=== PATIENT | male | born 1950 | race Caucasian/White ===

== ENCOUNTER 2017-01-18 09:53 | Emergency (ER) | payer MEDICARE, OTHER ==
--- NOTE | 2017-01-18 10:14 | ED Physician Documentation ---
Lower Extremity Injury - HISTORIAN Historian: patient - HPI Chief Complaint: Foot Injury Onset: hours (0815 this AM) Where: home Severity: moderate Context: direct blow Modifying Factors:: pain on movement - ROS CONST: no problems - PAST HX Past History: other (HTN) Allergies/Adverse Reactions: Allergies Allergy/AdvReac Type Severity Reaction Status Date / Time codeine AdvReac Mild Nausea/Vomi Verified 01/18/17 10:51 ting Home Medications: Ambulatory Orders Medication Instructions Recorded Cabergoline [Cabergoline] 0.25 mg PO BID 01/18/17 Losartan Potassium [Cozaar] 100 mg PO 1T 01/18/17 Metoprolol Tartrate [Lopressor] 50 mg PO BID 01/18/17 Pot Chloride/Pot Bicarb/Cit AC 20 meq PO 1T 01/18/17 [Potassium Cl 25 Meq Tab Eff] Prednisone [Prednisone] 20 mg PO BID 01/18/17 Simvastatin [Zocor] 20 mg PO 1T 01/18/17 Tamsulosin HCl [Flomax] 0.4 mg PO 1T 01/18/17 Tramadol HCl [Ultram] 50 mg PO Q4 PRN #20 tablet 01/18/17 - SOCIAL HX Smoking History: non-smoker Alcohol Use: rarely Drug Use: none - FAMILY HX Family History: no significant history - REVIEWED ASSESSMENTS Nursing Assessment Reviewed: Yes Vitals Reviewed: Yes ED Results Lab/Radiology - Orders Orders: ED Orders Category Date Time Status FOOT 3 VIEWS OR MORE [RAD] Stat Exams 01/18/17 Ordered Lower Extremities Injury Phy - Physical Exam General Appearance: alert, moderate distress Hips: bilateral hip: non-tender, normal inspection, normal range of motion, no evidence of injury Legs: bilateral: non-tender, normal inspection, normal range of motion, no evidence of injury Knees: bilateral: non-tender, normal inspection, normal range of motion, no evidence of injury Ankle: bilateral: non-tender, normal inspection, normal range of motion, no evidence of injury Foot: right foot: non-tender, normal inspection, normal range of motion, no evidence of injury, left foot: limited range of motion, pain, swelling (dorsum of foot) Gait: limited by pain Neuro/Vascular/Tendon: no vascular compromise, motor nml, sensation nml Resp/CVS: chest non-tender, breath sounds nml, heart sounds nml, no resp. distress, lungs clear Abdomen: non-tender Discharge Clincal Impression: Metatarsal fracture Qualifiers: Encounter type: initial encounter Metatarsal bone: second Fracture type: closed Fracture alignment: nondisplaced Laterality: left Qualified Code(s): S92.325A - Nondisplaced fracture of second metatarsal bone, left foot, initial encounter for closed fracture Metatarsal fracture Qualifiers: Encounter type: initial encounter Metatarsal bone: second Fracture type: closed Fracture alignment: nondisplaced Laterality: left Qualified Code(s): S92.325A - Nondisplaced fracture of second metatarsal bone, left foot, initial encounter for closed fracture Prescriptions: Tramadol HCl [Ultram] 50 mg PO Q4 PRN #20 tablet PRN Reason: Pain Additional Instructions: Wear walking boot all the time except when sitting around and when you take a shower. Keep foot elevated with ice for the next several days. Take Ibuprofen 200mg tablets as needed for pain, you may take up to 12 tablets a day. Take with food. Take Tramadol with food as needed for pain. Follow-up with me on January 31 and 4PM. Get an x-ray of your foot prior to the appointment. Home Medications: Ambulatory Orders Cabergoline [Cabergoline] 0.25 mg PO BID 01/18/17 Losartan Potassium [Cozaar] 100 mg PO 1T 01/18/17 Metoprolol Tartrate [Lopressor] 50 mg PO BID 01/18/17 Pot Chloride/Pot Bicarb/Cit AC [Potassium Cl 25 Meq Tab Eff] 20 meq PO 1T Prednisone [Prednisone] 20 mg PO BID 01/18/17 Simvastatin [Zocor] 20 mg PO 1T 01/18/17 Tamsulosin HCl [Flomax] 0.4 mg PO 1T 01/18/17 Tramadol HCl [Ultram] 50 mg PO Q4 PRN #20 tablet 01/18/17 Condition: Stable Disposition: 01 HOME, SELF-CARE Decision to Admit: NO Date of Decison to Admit: 01/18/17 Decision Time: 10:55
[2017-01-18 11:35] VITALS: BP 157/98
--- NOTE | 2017-01-18 15:29 | Diagnostic Imaging Report ---
[facility] [address] [facility] [address] Report Submission Date: Jan 18, 2017 10:48:54 AM CDT Patient Study Name: CORIN CHARLES Date: Jan 18, 2017 10:19:52 AM CDT Modality Type: CR Gender: M Description: LOWER EXTREMITY : 50 Institution: [facility] Physician JERMAINE DOMINGUEZ - ER Left foot three views HISTORY: Pain after dropping bucket on foot FINDINGS: Nondisplaced and nonangulated transverse mid to distal left 2nd and 3rd metatarsal shaft fractures are present. The remainder of the foot is intact. A small plantar heel spur and dorsal forefoot soft tissue swelling are noted. IMPRESSION: Nondisplaced left 2nd and 3rd metatarsal shaft fractures. Electronically signed on Jan 18, 2017 10:48:54 AM CDT by: Godfrey LARRY
== END 2017-01-18 11:31 | disposition home or self-care (01) ==
LOC: ED 09:53
DX: S92.325A Nondisplaced fracture of second metatarsal bone, left foot, initial encounter for closed fracture (principal); X58.XXXA Exposure to other specified factors, initial encounter; Y93.9 Activity, unspecified; Y99.9 Unspecified external cause status
CPT/HCPCS: 73630; 99283; L4360

== ENCOUNTER 2017-01-31 15:23 | Outpatient (CLI) | payer MEDICARE, OTHER ==
--- NOTE | 2017-01-31 17:30 | Diagnostic Imaging Report ---
[facility] [address] [facility] [address] Report Submission Date: January 31, 2017 5:14:26 PM CDT Patient Study Name: CORIN CHARLES Date: January 31, 2017 3:42:54 PM CDT Modality Type: CR Gender: M Description: LOWER EXTREMITY : 50 Institution: [facility] Physician: JERMAINE DOMINGUEZ - MARTINEZ The 3 views of the left foot Clinical history: Followup of left foot fracture Findings: There has been partial resume healing of the 2nd and 3rd metatarsal fractures. There is anatomic alignment 2nd metatarsal fracture. There is near anatomic alignment of the 3rd metatarsal fracture. There is minimal lateral displacement of the distal 3rd metatarsal at the fracture site. No new fractures identified. Impression: Partial progressive healing of 2nd and 3rd metatarsal fractures. Electronically signed on January 31, 2017 5:14:26 PM CDT by: Hansel LARRY
== END 2017-01-31 15:24 ==
LOC: RAD 15:23
PROVIDERS: ATTEND Family Medicine
DX: S92.302A Fracture of unspecified metatarsal bone(s), left foot, initial encounter for closed fracture (principal); X58.XXXA Exposure to other specified factors, initial encounter; Y93.9 Activity, unspecified; Y99.9 Unspecified external cause status
CPT/HCPCS: 73630

== ENCOUNTER 2017-02-28 09:17 | Outpatient (CLI) | payer MEDICARE, OTHER ==
--- NOTE | 2017-02-28 12:42 | Diagnostic Imaging Report ---
JERMAINE DOMINGUEZ [facility] [address] [facility] [address] [address] Report Submission Date: Feb 28, 2017 10:08:26 AM CDT Patient Study Name: CORIN CHARLES Date: Feb 28, 2017 9:35:59 AM CDT Modality Type: CR Gender: M Description: LOWER EXTREMITY : 50 Institution: [facility] Physician: JERMAINE DOMINGUEZ Left foot -three views CLINICAL HISTORY: Follow-up fracture. FINDINGS: Examination of the left foot in plantar, lateral and oblique views with comparison to examination of 01/31/2017 demonstrates healing fractures in the 2nd and 3rd metatarsal shafts with callus formation. There is lateral displacement of distal 3rd metatarsal fracture fragment by approximately 2 mm. Apposition and alignment of the 2nd metatarsal fracture fragments is anatomic. Degenerative changes are seen in the interphalangeal joints. IMPRESSION: Healing transverse fractures in the 2nd and 3rd metatarsal shafts. Electronically signed on Feb 28, 2017 10:08:26 AM CDT by: Moises LARRY
== END 2017-02-28 09:18 ==
LOC: RAD 09:17
PROVIDERS: ATTEND Family Medicine
DX: S92.335D Nondisplaced fracture of third metatarsal bone, left foot, subsequent encounter for fracture with routine healing (principal)
CPT/HCPCS: 73630

== ENCOUNTER 2017-03-21 09:29 | Outpatient (CLI) | payer MEDICARE, OTHER ==
--- NOTE | 2017-03-21 13:02 | Diagnostic Imaging Report ---
JERMAINE DOMINGUEZ [facility] [address] [facility] [address] [address] Report Submission Date: Mar 21, 2017 10:25:49 AM CDT Patient Study Name: CORIN CHARLES Date: Mar 21, 2017 9:32:47 AM CDT Modality Type: CR Gender: M Description: LOWER EXTREMITY : 50 Institution: [facility] Physician: JERMAINE DOMINGUEZ Examination: Plain film foot History: 2nd and 3rd metatarsal fractures Findings: 3 views of the foot demonstrates transverse lucencies involving the mid aspect of the 2nd and 3rd metatarsals. Callus formation. No crossing trabeculae. Remaining osseous cortical margins with are without other lucency. Mild articular degenerative changes. Impression: Callus formation however no crossing trabeculae identified by plain film sensitivity. Correlate clinically regarding possibility of nonunion fractures. Electronically signed on Mar 21, 2017 10:25:49 AM CDT by: James LARRY
== END 2017-03-21 09:30 ==
LOC: RAD 09:29
PROVIDERS: ATTEND Family Medicine
DX: S92.335D Nondisplaced fracture of third metatarsal bone, left foot, subsequent encounter for fracture with routine healing (principal); S92.332D Displaced fracture of third metatarsal bone, left foot, subsequent encounter for fracture with routine healing; X58.XXXA Exposure to other specified factors, initial encounter; Y93.9 Activity, unspecified; Y99.9 Unspecified external cause status
CPT/HCPCS: 73630

== ENCOUNTER 2017-03-22 07:25 | Outpatient (CLI) | payer MEDICARE, OTHER ==
[2017-03-22 08:23] LABS: eGFR (African) > 60; eGFR (Non-African) > 60
== END 2017-03-22 07:26 ==
LOC: LAB 07:25
PROVIDERS: ATTEND Nurse Practitioner Family
DX: E78.2 Mixed hyperlipidemia (principal); I10 Essential (primary) hypertension
CPT/HCPCS: 36415; 80053; 80061